=== PATIENT | male | born 1950 | race Caucasian/White ===

== ENCOUNTER → 2016-09-04 | Outpatient (CLI) | payer MEDICARE, BC ==
[~2016-09-04] MED LIST: ABILIFY2 MG; AVPAK AZITHROM250 MG PO; B12 INJ.,1000 MCG/M IM; BACLOFEN 10MG T10 MG PO; CYCLOBENZAPRINE5 MG PO; DIAZEPAM5 MG PO; DILTIAZEM ER 1120 MG PO; FUROSEMIDE 20MG20 MG PO; GABAPENTIN 600600 MG PO; GENERLAC10 GM/15 M PO; GLYBURIDE AND M1 TA2 PO; INDERAL10 MG PO; JANUVIA100 MG PO; LACTULOSE10 GM/15 M PO; LASIX40 MG PO; LORTAB 500 MG-11 TAB PO; MIRALAX(PO17 GM/1 PA PO; NADOLOL 20 MG T20 MG PO; NOVOLIN 70/30 710 ML SC; NOVOLIN 70/30 PE3 ML SC; OXYCONTIN30 MG PO; PLAVIX75 MG PO; PRILOSEC OTC20 MG PO; PROPRANOLOL HCL20 MG PO; RITE AID ASPIRI81 M1 PO; SPIRONOLACTONE25 MG PO; XIFAXAN550 MG PO
[2016-09-04 13:44] LABS: HEMOGLOBIN 15.6 g/dL (14.1-18.0); LYMPH # 1.2 K/mm3 (0.7-4.5); LYMPH % 29.5 % (10-50)
[2016-09-04 14:34] LABS: BUN 24 mg/dL (7-18); GFR (ESTIMATED) 38 ML/MIN (>60)
== END ==
LOC: LAB 13:05
PROVIDERS: Nurse Practitioner Family
DX: E11.42 Type 2 diabetes mellitus with diabetic polyneuropathy (principal); K74.5 Biliary cirrhosis, unspecified; E72.20 Disorder of urea cycle metabolism, unspecified; L50.8 Other urticaria

== ENCOUNTER → 2016-09-13 | Outpatient (CLI) | payer MEDICARE, BC ==
--- NOTE | 2016-09-13 14:25 | RADIOLOGY REPORT PS360 ---
PROCEDURE: 2-D M-mode and color Doppler study INDICATIONS FOR THE TEST: Chest pain COPD Heart Murmur+ Tobacco Smoking Palpitations Fatigue Syncope Edema+ Hypertension+Diabetes Mellitus+ Rheumatic Fever SOB+FUNG+Obesity Hyperlipidemia Family History HD Additional History TIA 7 YEARS AGO PATIENT INFORMATION HEIGHT: 65 WEIGHT: 190 GENDER: Male B/P: 175/71 2-D/M-MODE INTERPRETATION: 2-D MEASUREMENTS OBSERVED VALUES IN CMS Right Ventricular Dimension (RVDd) 2.7 Interventricular Septum (Thickness)(IVsd) 1.2 Left Ventricular Internal Dimensions(LVIDd) 4.3 Left Ventricular Posterior Wall (Thickness)(LVPWd) 1.3 Aortic Root 2.2 Aortic Cusp Separation 1.7 Left Atrial Dimensions (LAD) 4.0 2D 1. Left atrium is mildly enlarged, left ventricle is normal size, there is mild concentric left ventricular hypertrophy, visually estimated ejection fraction 55% with no obvious regional wall motion abnormality. 2. The right atrium is normal size, right ventricle is mildly enlarged with normal contractility. 3. The aortic valve is thickened and calcified with restriction the leaflet mobility. 4. The mitral valve has mild mitral calcification, there is no mitral stenosis. 5. The tricuspid valve is structurally normal. 6. The pulmonic valve is not well visualized. 7. No significant pericardial effusion noted. DOPPLER INTERROGATION: 1. The maximum aortic out flow velocity is 2.66 m/s resulting in a mean gradient across valve of 16 mmHg consistent with mild aortic stenosis, there is no aortic insufficiency. 2. The mitral inflow velocity within normal range, there is no mitral stenosis, there is mild mitral regurgitation, grade 1 diastolic dysfunction seen without tissue Doppler evidence of raised left atrial pressure. 3. There is mild tricuspid regurgitation noted calculated right ventricular systolic pressure 43 mmHg consistent with moderate pulmonary hypertension. CONCLUSION: 1. Mildly enlarged left atrium, normal left ventricular size, mild concentric left ventricular hypertrophy, visually estimated ejection fraction of 55% with no obvious regional wall motion abnormality, grade 1 diastolic dysfunction seen without tissue Doppler evidence of raised left atrial pressure. 2. Thickened and calcified aortic valve with mean gradient across valve of 2.66 m/s resulting in a mean gradient across valve of 16 mmHg consistent with mild aortic stenosis, there is no aortic insufficiency. 3. Mild mitral and tricuspid regurgitation, calculated right ventricular systolic pressure 43 mmHg consistent with moderate pulmonary hypertension. 4. No significant pericardial effusion noted.
--- NOTE | 2016-09-13 15:13 | RADIOLOGY REPORT PS360 ---
US ABD(COMPLETE-MULTI ORGANS HISTORY: BILIARY CIRRHOSIS ORDERING PHYSICIAN: Hyun Chapman APRN PATIENT AGE: 65 years COMPARISON: None FINDINGS: PANCREAS:Nonvisualized due to overlying bowel gas. LIVER:There is heterogeneous echogenicity of the liver with coarse architecture consistent with cirrhosis. Portal vein is small and difficult to evaluate with turbulent flow. No focal liver lesions demonstrated. RIGHT KIDNEY:No hydronephrosis. 14 mm cyst mid aspect LEFT KIDNEY:4 cm cyst lower pole GALLBLADDER:Sludge is present in the gallbladder and there is mild gallbladder wall thickening. No shadowing stones apparent. AORTA:No evidence of aneurysmal dilatation. SPLEEN:Splenomegaly at 17 cm ASCITES:None demonstrated. IMPRESSION: 1. Overall no change in the findings compatible with cirrhosis. Portal vein is small and difficult to evaluate. 2. Splenomegaly. 3. Mildly thickened gallbladder wall with gallbladder sludge.
[2016-09-14 08:55] LABS: Creatinine, Urine 76.8 mg/dL (Not Estab.); Microalbumin, Urine <3.0 ug/mL (Not Estab.)
== END ==
LOC: LAB 07:35 → RAD 07:35
PROVIDERS: Nurse Practitioner Family
DX: K74.5 Biliary cirrhosis, unspecified (principal); R06.09 Other forms of dyspnea; E11.42 Type 2 diabetes mellitus with diabetic polyneuropathy; E72.20 Disorder of urea cycle metabolism, unspecified; L50.8 Other urticaria

== ENCOUNTER → 2017-02-06 | Outpatient (CLI) | payer MEDICARE, BC ==
[2017-02-06 15:41] LABS: HEMOGLOBIN 14.8 g/dL (14.1-18.0); LYMPH # 1.1 K/mm3 (0.7-4.5); LYMPH % 31.6 % (10-50)
[2017-02-06 15:43] LABS: URINE BILIRUBIN - DIPSTICK NEGATIVE (NEG); URINE BLOOD NEGATIVE (NEG)
[2017-02-06 19:31] LABS: BUN 13 mg/dL (7-18)
[2017-02-06 19:35] LABS: GFR (ESTIMATED) 84 ML/MIN (>60)
== END ==
LOC: LAB 14:43
PROVIDERS: Nurse Practitioner Family
DX: R35.0 Frequency of micturition (principal); R53.1 Weakness

== ENCOUNTER → 2017-02-20 | Outpatient (CLI) | payer MEDICARE, BC ==
[2017-02-20 09:57] LABS: LYMPH # 1.3 K/mm3 (0.7-4.5); LYMPH % 38.3 % (10-50)
[2017-02-20 10:55] LABS: BUN 13 mg/dL (7-18)
[2017-02-20 10:59] LABS: GFR (ESTIMATED) 74 ML/MIN (>60)
== END ==
LOC: LAB 09:19
PROVIDERS: Nurse Practitioner Family
DX: K74.5 Biliary cirrhosis, unspecified (principal); E72.20 Disorder of urea cycle metabolism, unspecified; E11.42 Type 2 diabetes mellitus with diabetic polyneuropathy; I67.9 Cerebrovascular disease, unspecified; M12.9 Arthropathy, unspecified